=== PATIENT | female | born 1990 ===

== ENCOUNTER 2017-12-19 13:36 | Emergency (ER) | payer OTHER, MEDICAID ==
[2017-12-19 14:25] VITALS: TEMP 97.9
[2017-12-19] MEDS: Naproxen 550 mg Tab PO STA (15:14)
[2017-12-19] MEDS ORDERED: Naproxen 550 mg Tab PO ONE (15:15)
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
[2017-12-19 16:53] VITALS: BP 103/71; PULSE 79; RESP 20
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
[2017-12-19 18:11] VITALS: O2SAT 98
== END 2017-12-19 16:59 | disposition home or self-care (01) ==
LOC: C.ER 13:36
DX: S39.012A Strain of muscle, fascia and tendon of lower back, initial encounter (principal); S50.01XA Contusion of right elbow, initial encounter; V43.62XA Car passenger injured in collision with other type car in traffic accident, initial encounter; W22.12XA Striking against or struck by front passenger side automobile airbag, initial encounter; Y92.410 Unspecified street and highway as the place of occurrence of the external cause